=== PATIENT | male | born 1970 | race Caucasian/White ===

== ENCOUNTER → 2018-03-22 | Outpatient (CLI) | payer OTHER ==
--- NOTE | 2018-03-22 12:57 | RAD ---
CT of the abdomen and pelvis without contrast, 03/22/2018: HISTORY: Right-sided pain, hematuria and dysuria Noncontrast scans were obtained utilizing the renal stone protocol. This is a limited study for evaluation of the possibility of urinary tract calculi. There are multiple small bilateral intrarenal calculi. The largest of these on both sides measure approximately 4 mm. The left renal collecting system and ureter are unremarkable. There is dilatation of the right renal pelvis and the proximal right ureter due to a 6 mm calculus lodged in the mid right ureter at the L4-5 level. The distal ureters are unremarkable. The partially filled urinary bladder shows no abnormality. There is a probable tiny cyst in the right lobe of the liver. The gallbladder is unremarkable. No pancreatic abnormality is seen. The spleen is of normal size. There is minimal aortic calcific plaquing without evidence of aneurysm. No abdominal or pelvic adenopathy is seen. There is mild nonspecific prostatic enlargement. There is a moderate amount stool throughout the colon. The appendix is visualized and is unremarkable. The small bowel loops are of normal caliber. No free fluid or free air is evident in the abdomen or pelvis. There are moderate scattered degenerative changes in the spine. A mild grade 1 anterolisthesis is present at L4-5 secondary to bilateral L4 spondylolysis. There is also slight retrolisthesis at L5-S1, with considerable associated bilateral foraminal encroachment at that level. IMPRESSION: 1. Multiple small bilateral intrarenal calculi. 2. 6 mm obstructing calculus in the mid right ureter. 3. Mild nonspecific prostatic enlargement. 4. Moderate multilevel degenerative change in the lumbar spine. PQRS Compliance Statement: One or more of the following individualized dose reduction techniques were utilized for this examination: 1. Automated exposure control 2. Adjustment of the mA and/or kV according to patient size 3. Use of iterative reconstruction technique Electronically signed by: Philip Aguiar MD (03/22/2018 12:53 PM) [facility]
== END | disposition home or self-care (01) ==
LOC: CT 12:06
PROVIDERS: ATTEND Nurse Practitioner Family
DX: N20.2 Calculus of kidney with calculus of ureter (principal); N40.0 Benign prostatic hyperplasia without lower urinary tract symptoms; M43.06 Spondylolysis, lumbar region
CPT/HCPCS: 74176

== ENCOUNTER 2021-01-30 18:52 | Emergency (ER) | payer BC, OTHER ==
[~2021-01-30] VITALS: Ht 182.9 cm; Wt 82.0 kg
[2021-01-30] MEDS ORDERED: DEXAMETHASONE SOD PHOS 10 MG/ML VIAL. IV ONE (19:30)
[2021-01-30] MEDS ORDERED: IV RINGERS SOLUTION,LACTATED 1,000 ML IV ONE (19:30)
[2021-01-30] MEDS ORDERED: ONDANSETRON PF 4 MG/2 ML VIAL. IVP ONE (19:30)
[2021-01-30] MEDS ORDERED: PROCHLORPERAZINE 10 MG/2 ML VIAL. IV ONE (19:30)
[2021-01-30] MEDS ORDERED: diphenhydrAMINE 50 MG/ML VIAL IVP ONE (19:30)
--- NOTE | 2021-01-30 19:37 | PHYS DOC ---
Past History Past Medical History: No Pertinent History Past Surgical History: No Surgical History Alcohol Use: None Adult General Chief Complaint Chief Complaint: HEADACHE HPI HPI Patient is a 50-year-old male with a past medical history significant for depression on Prozac but states he is otherwise healthy and on no medications who presents to the emergency department with a chief complaint of headache with associated nausea, vomiting, photophobia, phonophobia and occasional double vision. States these episodes have been going on approximately 8 months and has about 2-3 of these a week usually last most of the day. States that the usually all started about the same way, bilaterally, in the forehead and behind the eyes and then move backwards across his head, is dull and achy, 8 out of 10 at its worst with the other associated symptoms. States that medications such as Tylenol, ibuprofen occasionally provides mild relief but almost never get rid of it. States he has seen his primary care physician and has consulted a neurologist and is due for outpatient imaging in 3 to 4 weeks. States that this started similarly this morning and grew over the course of the day. Denies any recent travel, illnesses, fevers, rash, chest pain, shortness of breath, abdominal pain, dysuria, hematuria, blood in the stool. Denies any alcohol, tobacco or drug use. States he used to chew tobacco but quit a few months ago. States he started vaping a month ago but the symptoms started 8 months ago when the vaping does not seem to help or hurt. Cannot identify any other aggravating or alleviating factors. Review of Systems Review of Systems Review of systems otherwise unremarkable except noted in HPI Current Medications Current Medications Current Medications Medications (Trade) Dose Ordered Sig/Romelia Start Time Stop Time Status Last Admin Dose Admin Dexamethasone Sodium Phosphate (Decadron) 10 mg 1X ONCE 01/30/21 19:30 01/30/21 19:31 UNV Diphenhydramine HCl (Benadryl) 50 mg 1X ONCE 01/30/21 19:30 01/30/21 19:31 Lactated Ringer's 1,000 ml @ 1,000 mls/hr 1X ONCE 01/30/21 19:30 01/30/21 20:29 Ondansetron HCl (Zofran) 8 mg 1X ONCE 01/30/21 19:30 01/30/21 19:31 UNV Prochlorperazine Edisylate (Compazine) 10 mg 1X ONCE 01/30/21 19:30 01/30/21 19:31 Allergies Allergies Allergies Coded Allergies Type Severity Reaction Last Updated Verified No Known Drug Allergies 01/30/21 No Physical Exam Physical Exam Constitutional: Well developed, well nourished, no acute distress, non-toxic appearance. [] HENT: Normocephalic, atraumatic, bilateral external ears normal, oropharynx moist, no oral exudates, nose normal. [] Eyes: PERRLA, EOMI, conjunctiva normal, no discharge. [] Neck: Normal range of motion, no tenderness, supple, no stridor. [] Cardiovascular:Heart rate regular rhythm, no murmur [] Lungs & Thorax: Bilateral breath sounds clear to auscultation [] Abdomen: Bowel sounds normal, soft, no tenderness, no masses, no pulsatile masses. [] Skin: Warm, dry, no erythema, no rash. [] Back: No tenderness, no CVA tenderness. [] Extremities: No tenderness, no cyanosis, no clubbing, ROM intact, no edema. [] Neurologic: Alert and oriented X 3, normal motor function, normal sensory function, able to sit, stand and walk without issue. States that when both eyes are open whenever he stared at seems slightly blurry, horizontally and if he covers either eye it clears up. States that the blurriness is not there all the time, just when he is having symptoms/headache Psychologic: Affect normal, judgement normal, mood normal. [] Current Patient Data Vital Signs Vital Signs Date Time Temp Pulse Resp B/P (MAP) Pulse Ox O2 Delivery O2 Flow Rate FiO2 01/30/21 19:11 97.2 74 16 152/107 (122) 100 Room Air EKG EKG [] Radiology/Procedures Radiology/Procedures [] Noncontrast CT: Sellar mass with expansion of the sella and suprasellar extension measuring 2.0 x 1.6 x 2.6 cm (TV by AP by CC). Abutment and displacement of the optic nerves and optic chiasm. Laterally, mass extends to both cavernous sinuses and abuts both cavernous and paraclinoid ICAs. No hyperdense intracranial hemorrhage. The ventricles are normal in size and configuration without midline shift. There is normal richards-white matter differentiation. The subarachnoid cisterns are patent. The visualized paranasal sinuses are well aerated. The mastoid air cells are clear. The visualized portions of the orbits are normal. No aggressive osseous lesion or fracture. CTA Head: The visualized distal internal carotid arteries, anterior and middle cerebral arteries are patent and normal caliber. The distal vertebral arteries, basilar artery, and posterior cerebral arteries are patent and normal caliber. No aneurysm or arteriovenous malformation is seen. CTA Neck: Right carotid: The right common carotid artery is patent and normal caliber. The carotid bifurcation is normal. No stenosis of the right internal carotid artery per NASCET criteria. The right external carotid artery is patent. Left carotid: The left common carotid artery is patent and normal caliber. The carotid bifurcation is normal. No stenosis of the left internal carotid artery per NASCET criteria. The left external carotid artery is patent. Right vertebral: The right vertebral artery is patent and normal caliber. Left vertebral: The left vertebral artery is patent and normal caliber. The visualized portions of the aortic arch are normal. The origins of the brachiocephalic and subclavian arteries are normal. No cervical lymphadenopathy. The thyroid gland is normal. The parotid and submandibular glands are normal. The visualized aerodigestive tract is unremarkable. Mild multilevel degenerative disc height loss. Multilevel disc protrusions and marginal osteophytes results in multilevel spinal canal stenosis. Multilevel uncovertebral and facet arthrosis with multilevel neural foraminal narrowing. Right upper lobe groundglass opacities and consolidation. IMPRESSION: 1. 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 This could be further characterized with contrast-enhanced MRI of the pituitary gland. 2. No acute hemorrhage or large territory richards-white loss. No intracranial large vessel occlusion. 3. No stenosis of the cervical carotid or vertebral arteries. 4. Right upper lobe groundglass opacities and consolidation, concerning for an infectious/inflammatory process. Heart Score C/O Chest Pain: No Risk Factors: Risk Factors: DM, Current or recent (<one month) smoker, HTN, HLP, family history of CAD, obesity. Risk Scores: Risk Factors: DM, Current or recent (<one month) smoker, HTN, HLP, family history of CAD, obesity. Course & Med Decision Making Course & Med Decision Making Patient is a 50-year-old male who presents with 8 months of intermittent severe headaches associated with photophobia, phonophobia, blurry vision, nausea and vomiting Vital signs notable for hypertension. Physical exam noted above. Patient placed on the monitor with IV access established and IV fluid resuscitation begun. Headache cocktail again. Given patient's length of symptoms, and age of onset of these headaches CT of the head and CTA of the head and neck obtained to evaluate for masses, bleeds, clots or aneurysms. Imaging notable for a large suprasellar pituitary macroadenoma pushing up against the optic chiasm. Discussed all findings with patient and recommended admission for continued neurosurgical evaluation. Family requested transfer to [facility]. Discussed patient with [facility] neurosurgery department who accepted patient for transfer and admission. Patient and family verbalized understanding and agreed with plan of transfer and admission. [] Dragon Disclaimer Dragon Disclaimer This electronic medical record was generated, in whole or in part, using a voice recognition dictation system. Departure Departure: Impression: Primary Impression: Headache Additional Impressions: Blurry vision Nausea & vomiting Pituitary macroadenoma Disposition: 02 [facility]ORT TERM [facility] Referrals: BETZA[facility] (PCP) Problem Qualifiers SHERIDAN RAE MD Jan 30, 2021 19:37
[2021-01-30 19:55] LABS: BASO % 1 % (0-3); EOS # 0.2 x10^3/uL (0.0-0.7); EOS % 4 % (0-3); HEMOGLOBIN 14.9 g/dL (13.0-17.5); LYMPH # 1.6 x10^3/uL (1.0-4.8); LYMPH % 28 % (24-48); MEAN CORPUSCULAR HEMOGLOBIN 29 pg (25-35); MEAN CORPUSCULAR HGB CONC 34 g/dL (31-37); MEAN CORPUSCULAR VOLUME 87 fL (79-100); MONO # 0.5 x10^3/uL (0.0-1.1); MONO % 8 % (0-9); NEUT # 3.4 x10^3uL (1.8-7.7); NEUT % 60 % (31-73); PLATELET COUNT 248 x10^3/uL (140-400); RED BLOOD COUNT 5.08 x10^6/uL (4.30-5.70); RED CELL DISTRIBUTION WIDTH 14.1 % (11.5-14.5); WHITE BLOOD COUNT 5.7 x10^3/uL (4.0-11.0)
[2021-01-30 19:58] LABS: CALCIUM 9.2 mg/dL (8.5-10.1); CREATININE 1.4 mg/dL (0.7-1.3); GFR 53.6; POTASSIUM 4.2 mmol/L (3.5-5.1)
[2021-01-30 20:04] LABS: ALBUMIN 3.6 g/dL (3.4-5.0); ALBUMIN/GLOBULIN RATIO 1.2 (1.0-1.7); TOTAL BILIRUBIN 0.3 mg/dL (0.2-1.0); TOTAL PROTEIN 6.5 g/dL (6.4-8.2)
[2021-01-30] MEDS ORDERED: IOHEXOL 350 MG/ML 100 ML VIAL. IV ONE (20:15)
--- NOTE | 2021-01-30 21:08 | RAD ---
EXAM: CT HEAD/BRAIN WO, CTA HEAD AND NECK W/WO CONTRAST DATE: 01/30/2021 8:04 PM INDICATION: PEREZ, with N/V, diplopia TECHNIQUE: 5 mm axial tomographic images were obtained through the head before contrast. CTA angiogra m of the head and neck was obtained after IV bolus administration of 75 cc of Omnipaque 350. The imag es were sent to workstation and multiplanar reconstructions were obtained. Multiplanar reconstructio n images to include MIP and 3-D reconstruction images are submitted. One or more of the following dose reduction techniques were utilized: Automated exposure control (AEC ), Adjustment of mA and/or kV according to patient size, Use of iterative reconstruction technique belcher ch as ASiR, CT scan done according to ALARA and image gently/image wisely COMPARISON: None. FINDINGS: Noncontrast CT: Sellar mass with expansion of the sella and suprasellar extension measuring 2.0 x 1.6 x 2.6 cm (TV by AP by CC). Abutment and displacement of the optic nerves and optic chiasm. Laterally, mass extends t o both cavernous sinuses and abuts both cavernous and paraclinoid ICAs. No hyperdense intracranial hemorrhage. The ventricles are normal in size and configuration without mi dline shift. There is normal richards-white matter differentiation. The subarachnoid cisterns are patent. The visualized paranasal sinuses are well aerated. The mastoid air cells are clear. The visualized po rtions of the orbits are normal. No aggressive osseous lesion or fracture. CTA Head: The visualized distal internal carotid arteries, anterior and middle cerebral arteries are patent and normal caliber. The distal vertebral arteries, basilar artery, and posterior cerebral arteries are p atent and normal caliber. No aneurysm or arteriovenous malformation is seen. CTA Neck: Right carotid: The right common carotid artery is patent and normal caliber. The carotid bifurcation is normal. No stenosis of the right internal carotid artery per NASCET criteria. The right external c arotid artery is patent. Left carotid: The left common carotid artery is patent and normal caliber. The carotid bifurcation is normal. No stenosis of the left internal carotid artery per NASCET criteria. The left external carot id artery is patent. Right vertebral: The right vertebral artery is patent and normal caliber. Left vertebral: The left vertebral artery is patent and normal caliber. The visualized portions of the aortic arch are normal. The origins of the brachiocephalic and subclav lorenza arteries are normal. No cervical lymphadenopathy. The thyroid gland is normal. The parotid and submandibular glands are no rmal. The visualized aerodigestive tract is unremarkable. Mild multilevel degenerative disc height loss. Multilevel disc protrusions and marginal osteophytes r esults in multilevel spinal canal stenosis. Multilevel uncovertebral and facet arthrosis with multile allegra neural foraminal narrowing. Right upper lobe groundglass opacities and consolidation. IMPRESSION: 1. 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 This could be further characterized with contrast-en hanced MRI of the pituitary gland. 2. No acute hemorrhage or large territory richards-white loss. No intracranial large vessel occlusion. 3. No stenosis of the cervical carotid or vertebral arteries. 4. Right upper lobe groundglass opacities and consolidation, concerning for an infectious/inflammator y process. PQRS Compliance Statement - Stenosis calculations for CT, MR and conventional angiography are based u angelica measurement of the distal ICA diameter in accordance with the NASCET methodology. Electronically signed by: Chase Posadas MD (01/30/2021 9:05 PM) [facility]
[2021-01-30 21:30] VITALS: BP 148/107
[2021-01-30] MEDS ORDERED: MORPHINE SULFATE 4 MG/ML DISP.SYRIN. IV ONE (21:30)
--- NOTE | 2021-01-30 23:20 | EKG ---
[address] [address] Test Date: 2021-01-30 Test Time: 19:35:27 Pat Name: LARY GALLARDO Department: Room: Gender: M Underliner: : 1970 Requested By: SHERIDAN RAE Order Number: [id number] Reading MD: Measurements Intervals Parker Rate: 68 P: 49 GA: 206 QRS: 124 QRSD: 108 T: 82 QT: 400 QTc: 426 Interpretive Statements SINUS RHYTHM ABNORMAL RIGHT AXIS DEVIATION CONSIDER RIGHT VENTRICULAR HYPERTROPHY QRS(T) CONTOUR ABNORMALITY CONSIDER ANTEROSEPTAL MYOCARDIAL DAMAGE ABNORMAL ECG RI6.02 No previous ECG available for comparison
== END 2021-01-30 23:37 | disposition short-term general hospital (02) ==
LOC: ER 18:52
DX: R51.9 Headache, unspecified (principal); R11.2 Nausea with vomiting, unspecified; H53.8 Other visual disturbances; F32.9 Major depressive disorder, single episode, unspecified
CPT/HCPCS: 36415; 70450; 70496; 70498; 80053; 83735; 84484; 85025; 93005; 96361; 96374; 96375; 99285; J0780; J1100; J1200; J2270; J2405; J7120; Q9967

== ENCOUNTER → 2021-02-19 | Outpatient (CLI) | payer BC ==
[2021-01-30 21:30] VITALS: BP 148/107
[2021-02-19 10:25] LABS: BASO % 0 % (0-3); EOS % 0 % (0-3); HEMATOCRIT 44.1 % (39.0-53.0); HEMOGLOBIN 14.9 g/dL (13.0-17.5); LYMPH # 0.7 x10^3/uL (1.0-4.8); LYMPH % 6 % (24-48); MEAN CORPUSCULAR HEMOGLOBIN 30 pg (25-35); MEAN CORPUSCULAR HGB CONC 34 g/dL (31-37); MEAN CORPUSCULAR VOLUME 89 fL (79-100); MONO # 0.5 x10^3/uL (0.0-1.1); MONO % 4 % (0-9); NEUT # 10.3 x10^3uL (1.8-7.7); NEUT % 89 % (31-73); PLATELET COUNT 250 x10^3/uL (140-400); RED BLOOD COUNT 4.98 x10^6/uL (4.30-5.70); RED CELL DISTRIBUTION WIDTH 15.8 % (11.5-14.5); WHITE BLOOD COUNT 11.6 x10^3/uL (4.0-11.0)
[2021-02-19 10:28] LABS: CALCIUM 8.3 mg/dL (8.5-10.1); CREATININE 1.2 mg/dL (0.7-1.3); GFR 64.1; POTASSIUM 3.1 mmol/L (3.5-5.1)
== END ==
LOC: LAB 09:34
DX: D35.2 Benign neoplasm of pituitary gland (principal)
CPT/HCPCS: 36415; 80048; 85025; 85610; 85730